=== PATIENT | female | born 1950 | race Caucasian/White ===

== ENCOUNTER → 2018-01-29 08:14 | Outpatient (CLI) | payer MEDICARE, OTHER, SELFPAY ==
--- NOTE | 2018-01-29 | DI.MG.S_ITS ---
UNILATERAL RIGHT DIGITAL DIAGNOSTIC MAMMOGRAM 3D/2D POST LUMPECTOMY SHORT-TERM FOLLOW-UP: 01/29/2018 CLINICAL: Patient returns for a 6 month follow up of the right breast. Comparison is made to exams dated: 08/17/2017 breast MRI, 08/03/2017 ultrasound, 08/03/2017 mammogram, and 07/19/2017 mammogram - [facility]. The tissue of the right breast is heterogeneously dense. This may lower the sensitivity of mammography. There is architectural distortion in the right breast at 7 o'clock anterior depth. This has increased in conspicuity when compared to the prior mammogram. In retrospect, there is an MRI correlate to this finding on the MRI dated 08/17/17 (Series 12, image 40 and Series 17, images 73 and 74). No other significant masses or calcifications are seen in the breast. IMPRESSION: INCOMPLETE: NEEDS ADDITIONAL IMAGING EVALUATION The architectural distortion in the right breast is indeterminate. Given the increased conspicuity, an ultrasound of this area is recommended. If no ultrasound correlate is seen, consider stereotactic biopsy as this is seen by mammogram. This was discussed with the patient by the radiologist (Dr. Hercules) at the time of the exam. This exam was interpreted at Station ID: [id number]. NOTE: For mammograms, a report in lay terms will be sent to the patient. Approximately 15% of breast malignancies will not be visualized mammographically. In the management of a palpable breast mass, a negative mammogram must not discourage biopsy of a clinically suspicious lesion. Electronically Signed By: Ruma Hercules M.D. lk/:01/30/2018 06:50:56 Entry: - 01/30/2018 06:50:56 copy to: Dann Hernandez letter sent: Need Ultrasound ACR BI-RADS Category 0: Incomplete [id number]
== END ==
PROVIDERS: PCP Physician Assistant; Visit Provider Physician Assistant
DX: R92.8 Other abnormal and inconclusive findings on diagnostic imaging of breast (principal)
CPT/HCPCS: 77065; G0279

== ENCOUNTER → 2018-01-30 09:04 | Outpatient (CLI) | payer MEDICARE, OTHER, SELFPAY ==
--- NOTE | 2018-01-30 | DI.US.S_ITS ---
ULTRASOUND OF RIGHT BREAST: 01/30/2018 CLINICAL: Patient returns today to evaluate architectual distortion in the right breast. Comparison is made to exams dated: 01/29/2018 mammogram, 08/17/2017 breast MRI, 08/03/2017 ultrasound, and 08/03/2017 mammogram - [facility]. Real-time and Doppler ultrasound of the right breast were performed. Arce scale images of the real-time examination were reviewed. Targeted ultrasound was performed in the region of the reported architectual distortion along the 7 o'clock position as seen on comparison diagnostic mammogram of 01/29/18. No underlying correlating breast mass or abnormality is identified. Targeted ultrasound along the 9 o'clock position at site of previously reported 5 mm complicated cyst on comparison ultrasound exam demonstrates no ultrasound correlate. No mass or abnormality is identified. IMPRESSION: SUSPICIOUS OF MALIGNANCY - FOLLOW-UP RECOMMENDED No ultrasound correlate for the concerning architectural distortion at 7 o'clock position seen on comparison diagnostic mammogram of 01/29/18. Recommend stereotactic biopsy for further evaluation. These results and recommendations were discussed in person with the patient by [facility] Radiologist Dr. Josee Givens at the time of the exam. No ultrasound correlate for the 5 mm complicated cyst at 9 o'clock position seen on prior ultrasound exam. This cyst may have resolved, but attention on follow-up exams recommended. This exam was interpreted at Station ID: [id number]. Electronically Signed By: Adeel Pastrana M.D. ecl/:01/30/2018 10:06:31 copy to: Dann Hernandez letter sent: Biopsy Required Ultrasound BI-RADS: 4a Suspicious abnormality - low suspicion for malignancy
== END ==
PROVIDERS: PCP Physician Assistant; Visit Provider Physician Assistant
DX: R92.8 Other abnormal and inconclusive findings on diagnostic imaging of breast (principal)
CPT/HCPCS: 76642

== ENCOUNTER → 2018-08-01 12:56 | Outpatient (CLI) | payer MEDICARE, OTHER, SELFPAY ==
--- NOTE | 2018-08-01 | DI.US.S_ITS ---
ULTRASOUND OF RIGHT BREAST: 08/01/2018 CLINICAL: Patient returns today to evaluate an architectural distortion in the right breast. Comparison is made to exams dated: 08/01/2018 mammogram - [facility], 02/09/2018 stereotactic biopsy [facility], 01/30/2018 ultrasound, 01/29/2018 mammogram, 08/17/2017 breast MRI, and 06/29/2015 mammogram - [facility]. Real-time ultrasound of the right breast was performed. Arce scale images of the real-time examination were reviewed. No abnormalities were seen sonographically in the right breast. No sonographic abnormalities to correlate with area of possible architectural distortion in the anterior right breast seen on mammography and MRI. No new mass or disturbed parenchymal echotexture. IMPRESSION: PROBABLY BENIGN There is no abnormality seen in the right breast to correspond with the mammography findings. A follow-up mammogram and an ultrasound in 6 months is recommended to demonstrate continued stability. Will continue with imaging observation until 24 months of stability is documented to confirm that this is a benign process. This exam was interpreted at Station ID: [id number]. Electronically Signed By: Gino curiel/:08/02/2018 08:32:28 letter sent: Followup Recommended Ultrasound BI-RADS: 3 Probably benign
--- NOTE | 2018-08-01 | DI.MG.S_ITS ---
BILATERAL DIGITAL DIAGNOSTIC MAMMOGRAM 3D/2D SHORT-TERM FOLLOW-UP: 08/01/2018 CLINICAL: Patient returns for 6 month follow up of right breast, due for bilateral exam. Post clip. Comparison is made to exams dated: 02/09/2018 stereotactic biopsy - [facility], 01/30/2018 ultrasound, 01/29/2018 mammogram, and 08/17/2017 breast MRI - [facility]. The tissue of both breasts is heterogeneously dense. This may lower the sensitivity of mammography. There are biopsy clips in the left breast. There is possible architectural distortion in the right breast central to the nipple anterior depth. This is not significantly changed and correlates with breast MRI findings. No other significant masses, calcifications, or other findings are seen in either breast. IMPRESSION: INCOMPLETE: NEEDS ADDITIONAL IMAGING EVALUATION The possible architectural distortion in the right breast is indeterminate. An ultrasound is recommended. This exam was interpreted at Station ID: [id number]. NOTE: For mammograms, a report in lay terms will be sent to the patient. Approximately 15% of breast malignancies will not be visualized mammographically. In the management of a palpable breast mass, a negative mammogram must not discourage biopsy of a clinically suspicious lesion. SUMMARY: An ultrasound is scheduled to immediately follow this examination. Electronically Signed By: Gino Aldana M.D. aty/:08/01/2018 14:29:47 ACR BI-RADS Category 0: Incomplete 3340F
== END ==
PROVIDERS: PCP Physician Assistant; Visit Provider Physician Assistant
DX: R92.8 Other abnormal and inconclusive findings on diagnostic imaging of breast (principal)
CPT/HCPCS: 76642; 77066; G0279

== ENCOUNTER 2018-11-09 14:35 | Emergency (ER) | payer MEDICARE, OTHER, SELFPAY ==
[2018-11-09] VITALS (13 sets, daily range): BP systolic 111–144; BP diastolic 54–86; PULSE 55–67; RESP 10–36; TEMP 37.1; O2SAT 92–100; BMI 34.9
--- NOTE | 2018-11-09 14:41 | DI.RAD.S_ITS ---
PROCEDURE: XR SHOULDER RT MIN 2V INDICATIONS: fall onto right shoulder TECHNIQUE: 2 views of the shoulder were acquired. COMPARISON: None. FINDINGS: Bones: Anterior shoulder dislocation. No fracture identified. No suspicious bony lesions. Visualized ribs appear intact. Soft tissues: No suspicious soft tissue calcifications. IMPRESSION: Anterior shoulder dislocation Dictated by: Rajendra Beard M.D. on 11/09/2018 at 15:00 Approved by: Rajendra Beard M.D. on 11/09/2018 at 15:01
[2018-11-09] MEDS: HYDROMORPHONE 1 MG INJ 0.5 MG IV ×2 (15:44→16:36)
[2018-11-09] MEDS: ONDANSETRON 4 MG/2 ML INJ IV ×2 (15:45→17:08)
[2018-11-09] MEDS: ETOMIDATE 2 MG/ML VIAL 8 MG IV (16:58)
--- NOTE | 2018-11-09 17:10 | DI.RAD.S_ITS ---
PROCEDURE: XR SHOULDER RT MIN 2V INDICATIONS: reduction TECHNIQUE: 2 views of the shoulder were acquired. COMPARISON: [facility], CR, XR SHOULDER RT MIN 2V, 11/09/2018, 14:47. FINDINGS: Bones: There is interval reduction of earlier noted anterior-inferior dislocation of glenohumeral joint. No dislocation is seen on the current study. Right shoulder alignment is anatomic. 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 Hill-Sachs deformity in posterior lateral humeral head is seen. No suspicious bony lesions. Visualized ribs appear intact. Soft tissues: No suspicious soft tissue calcifications. IMPRESSION: Interval reduction of earlier noted glenohumeral joint dislocation with anatomic right shoulder alignment. Hill-Sachs deformity involving the humeral head. No dislocation. Dictated by: Delfin Anderson M.D. on 11/09/2018 at 17:32 Approved by: Delfin Anderson M.D. on 11/09/2018 at 17:33
--- NOTE | 2018-11-09 17:52 | ED.UPPEXIN ---
HPI - Extremity Injury (Upper) General Chief Complaint: Extremity Injury, Upper Stated Complaint: fell today hurt right shoulder Time Seen by Provider: 11/09/18 16:01 Source: patient Mode of arrival: ambulatory Limitations: no limitations History of Present Illness HPI narrative: The patient is a 68-year-old female who presents with right shoulder pain. She tripped and fell she is not obvious right shoulder deformity. No numbness or tingling no other injuries. MD complaint: injury to: right and shoulder Related Data Home Medications Medication Instructions Recorded Confirmed Calcium 500 + D 1 tab PO DAILY #0 06/22/11 11/09/18 Spiriva with HandiHaler 18 mcg RT DAILY #0 06/22/11 11/09/18 albuterol sulfate 1 puff INHALATION PRN PRN #0 06/22/11 11/09/18 Acid Reflux Med 1 tab PO QPM 11/09/18 11/09/18 Dulera 1 puff INHALATION BID 11/09/18 11/09/18 Eyrghr-Nipay-CVH (with antiox) 1 tab PO QPM 11/09/18 11/09/18 atorvastatin 1 tab PO QPM 11/09/18 11/09/18 magnesium 450 mg PO QPM 11/09/18 11/09/18 vitamin E 1 cap PO QPM 11/09/18 11/09/18 Previous Rx's Medication Instructions Recorded ondansetron 4 mg PO Q6-8H PRN #10 tab 11/09/18 Allergies Allergy/AdvReac Type Severity Reaction Status Date / Time budesonide [From Symbicort] Allergy Verified 11/09/18 14:38 formoterol [From Symbicort] Allergy Verified 11/09/18 14:38 Review of Systems Review of Systems GENERAL: Denies chills,fever HEENT: Denies throat pain RESPIRATORY: Denies dyspnea, cough, wheezing CARDIOVASCULAR: Denies chest pain, palpitations GASTROINTESTINAL: Denies nausea, vomiting MUSCULOSKELETAL: See HPI SKIN: No rash, no laceration, no pruritus NEUROLOGIC: Denies weakness, dizziness, headache, numbness 8 point review of systems is negative except for those stated above and HPI [facility] Medical History COPD (chronic obstructive pulmonary disease) (Acute) Social History Smoking Status: Unknown if ever smoked Social History Smoking Status: Unknown if ever smoked Exam Initial Vital Signs Initial Vital Signs: Vital Signs Temperature 98.7 F 11/09/18 14:38 Pulse Rate 67 11/09/18 14:38 Respiratory Rate 14 11/09/18 14:38 Blood Pressure 129/81 11/09/18 14:38 Pulse Oximetry 96 11/09/18 14:38 GENERAL: Well-appearing, well-nourished and in no acute distress. CARDIOVASCULAR: peripheral pulses in tact, cap refill <2 sec RESPIRATORY: No respiratory distress, speaks in full sentences without difficulty EXTREMITIES: Normal range of motion, no clubbing or edema. Neurovascularly intact Right shoulder deformity NEUROLOGICAL: Cranial nerves II through XII grossly intact. Normal gait and speech. SKIN: Warm, dry, no petechiae, no rashes or lesions. Procedures Orthopedic Joint Reduction Joint #1: Time Out Performed: Yes Side: right Joint Reduction Location: shoulder Shoulder Technique Used (if applicable): traction/counter-traction Post-reduction neuro exam: intact Post-reduction vascular: intact Post Reduction X-Ray Obtained: Yes Post Reduction X-Ray Results: reduced Splint Applied: Yes Patient Tolerated Procedure: Well Orthopedic Splinting/Casting Injury #1: Side: right Upper Extremity Injury Location: shoulder Upper Extremity Immobilizer: sling/shoulder immobilizer Post splinting neuro exam: intact Post splinting vascular exam: intact Placed by: Nursing Procedural Sedation Patient Age: Patient is 5yrs or older Consent signed: Yes Time out performed: Yes Indication: fracture/dislocation reduction ASA Class: I Preparation: laboratory monitor applied and IV secured IV Etomidate dose (mg): 8 Intraservice time/total sedation time (min): 15 ED Sedation Level: Moderate (Concious) Course Orders Ordered: Discontinued Medications Etomidate (Amidate) 8 mg IV NOW ONE Stop: 11/09/18 16:03 Last Admin: 11/09/18 16:58 Dose: 8 mg Hydromorphone HCl (Dilaudid) 0.5 mg IV NOW ONE Stop: 11/09/18 15:40 Last Admin: 11/09/18 15:44 Dose: 0.5 mg Hydromorphone HCl (Dilaudid) 0.5 mg IV NOW ONE Stop: 11/09/18 16:36 Last Admin: 11/09/18 16:36 Dose: 0.5 mg Ondansetron HCl (Zofran) 4 mg IV NOW ONE Stop: 11/09/18 15:40 Last Admin: 11/09/18 15:45 Dose: 4 mg Ondansetron HCl (Zofran) 4 mg IV NOW ONE Stop: 11/09/18 17:07 Last Admin: 11/09/18 17:08 Dose: 4 mg Vital Signs - 8 hr 11/09/18 14:38 11/09/18 16:35 11/09/18 17:00 Temperature 98.7 F Pulse Rate 67 60 66 Respiratory Rate 14 10 L 19 Blood Pressure 129/81 Blood Pressure [Left Arm] 144/76 H 135/63 Pulse Oximetry 96 92 97 11/09/18 17:05 11/09/18 17:10 11/09/18 17:15 Temperature Pulse Rate 66 59 L 59 L Respiratory Rate 15 12 13 Blood Pressure Blood Pressure [Left Arm] 142/79 H 140/71 127/65 Pulse Oximetry 93 98 96 11/09/18 17:20 11/09/18 17:25 11/09/18 17:30 Temperature Pulse Rate 61 58 L 58 L Respiratory Rate 13 13 13 Blood Pressure Blood Pressure [Left Arm] 114/59 L 119/86 114/57 L Pulse Oximetry 97 97 97 11/09/18 17:35 Temperature Pulse Rate 58 L Respiratory Rate 13 Blood Pressure Blood Pressure [Left Arm] 111/68 Pulse Oximetry 95 MDM - Extremity Injury (Upper) Lab Data Point of Care Testing Test Results Not applicable Imaging Data shoulder XR: Radiologist's impression: PROCEDURE: XR SHOULDER RT MIN 2V INDICATIONS: fall onto right shoulder TECHNIQUE: 2 views of the shoulder were acquired. COMPARISON: None. FINDINGS: Bones: Anterior shoulder dislocation. No fracture identified. No suspicious bony lesions. Visualized ribs appear intact. Soft tissues: No suspicious soft tissue calcifications. IMPRESSION: Anterior shoulder dislocation Dictated by: Rajendra Beard M.D. on 11/09/2018 at 15:00 shoulder XR 2: Radiologist's impression: PROCEDURE: XR SHOULDER RT MIN 2V INDICATIONS: reduction TECHNIQUE: 2 views of the shoulder were acquired. COMPARISON: [facility], XR SHOULDER RT MIN 2V, 11/09/2018, 14:47. FINDINGS: Bones: There is interval reduction of earlier noted anterior-inferior dislocation of glenohumeral joint. No dislocation is seen on the current study. Right shoulder alignment is anatomic. 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 Hill-Sachs deformity in posterior lateral humeral head is seen. No suspicious bony lesions. Visualized ribs appear intact. Soft tissues: No suspicious soft tissue calcifications. IMPRESSION: Interval reduction of earlier noted glenohumeral joint dislocation with anatomic right shoulder alignment. Hill-Sachs deformity involving the humeral head. No dislocation. Dictated by: Delfin Anderson M.D. on 11/09/2018 at 17:32 Discharge Plan Departure Patient Disposition: Home Clinical Impression: Hill Sachs deformity, right Dislocated shoulder Qualifiers: Encounter type: initial encounter Laterality: right Qualified Code(s): S43.004A - Unspecified dislocation of right shoulder joint, initial encounter Discharge Date/Time: 11/09/18 18:49 Interventions: ED Discharge Assessment Last Done: 11/09/18 18:48 Instructions: DI for Shoulder Dislocation, DI for Shoulder Fracture Activity Restrictions/Additional Instructions: *You have been diagnosed with right shoulder dislocation *What to do: keep arm in sling *Continue to take medications as directed Zofran 4 mg sublingual every 6 8 hours if needed for nausea vomiting *Follow up with your primary care provider in 2-3 days, follow up with orthopedic in 1-2 weeks *Return to ER if you should have increasing pain number tingling or weakness or any new, worsening or concerning symptoms Prescriptions: New ondansetron 4 mg tablet,disintegrating 4 mg PO Q6-8H PRN (Reason: nausea and vomiting) Qty: 10 RF: 0 No Action albuterol sulfate 90 mcg/actuation Hfa Aerosol Inhaler 1 puff INHALATION PRN PRN (Reason: Shortness Of Breath) Qty: 0 RF: 0 Spiriva with HandiHaler 18 MCG capsule, w/inhalation device 18 mcg RT DAILY Qty: 0 RF: 0 Calcium 500 + D 1 tab PO DAILY Qty: 0 RF: 0 Acid Reflux Med 1 tab PO QPM RF: 0 Dulera 1 puff inhalation BID RF: 0 Xmwxfp-Ltmya-MHG (with antiox) 1 tab PO QPM RF: 0 atorvastatin 1 tab PO QPM RF: 0 magnesium 450 mg 450 mg PO QPM RF: 0 vitamin E 1 cap PO QPM RF: 0 Referrals: [facility] [Provider Group]
== END 2018-11-09 18:49 | disposition home or self-care (01) ==
PROVIDERS: Emergency Provider Emergency Medicine
DX: S43.004A Unspecified dislocation of right shoulder joint, initial encounter (principal); M21.821 Other specified acquired deformities of right upper arm; W01.0XXA Fall on same level from slipping, tripping and stumbling without subsequent striking against object, initial encounter
CPT/HCPCS: 23650; 73030; 94770; 96374; 96375; 96376; 99284; 99285; 99291; J1170; J2405

== ENCOUNTER → 2019-01-23 14:08 | Outpatient (CLI) | payer MEDICARE, OTHER, SELFPAY ==
--- NOTE | 2019-01-23 | DI.MG.S_ITS ---
UNILATERAL RIGHT DIGITAL DIAGNOSTIC MAMMOGRAM 3D/2D: 01/23/2019 CLINICAL: Patient returns for a 6 month follow up of the right breast. Comparison is made to exams dated: 08/01/2018 [facility], 02/09/2018 stereotactic biopsy [facility], and 01/29/2018 [facility]. The tissue of right breast is heterogeneously dense. This may lower the sensitivity of mammography. There is a stable small area of possible architectural distortion in the right breast at 7 o'clock anterior depth. No new area of asymmetry. A biopsy clip is present at the 11:00 position at the same depth. No other significant masses or calcifications are seen in the breast. IMPRESSION: INCOMPLETE: NEEDS ADDITIONAL IMAGING EVALUATION The possible architectural distortion in the right breast is stable. An ultrasound is recommended for confirmation. This was performed immediately following this exam. This exam was interpreted at Station ID: [id number]. NOTE: For mammograms, a report in lay terms will be sent to the patient. Approximately 15% of breast malignancies will not be visualized mammographically. In the management of a palpable breast mass, a negative mammogram must not discourage biopsy of a clinically suspicious lesion. Electronically Signed By: Jamila bey/:01/23/2019 17:00:19 ACR BI-RADS Category 0: Incomplete 3340F
--- NOTE | 2019-01-23 | DI.US.S_ITS ---
LIMITED ULTRASOUND OF RIGHT BREAST: 01/23/2019 CLINICAL: Patient returns for a 6 month follow up of the right breast. Comparison is made to exams dated: 01/23/2019 mammogram, 08/01/2018 ultrasound, 08/01/2018 mammogram, 01/30/2018 ultrasound, 01/29/2018 mammogram, and 08/17/2017 breast [facility]. Real-time ultrasound of the right breast lower outer quadrant was performed. Arce scale images of the real-time examination were reviewed. The breast tissue of the right breast is heterogeneous and fibrocystic. Overall appearance is stable without new shadowing or solid mass. No significant abnormalities were seen sonographically in the right breast. IMPRESSION: PROBABLY BENIGN Heterogeneous, stable tissue in the right breast. No sonographic correlate to area of possible architectural distortion on mammogram. Continue with follow-up right mammogram and an ultrasound in 6 months is recommended to demonstrate at least 2 years of stability. Findings and recommendations were conveyed to the patient at time of exam. This exam was interpreted at Station ID: [id number]. Electronically Signed By: Jamila bey/:01/23/2019 17:05:38 letter sent: Followup Recommended Ultrasound BI-RADS: 3 Probably benign
== END ==
PROVIDERS: PCP Student in an Organized Health Care Education/Training Program; Visit Provider Student in an Organized Health Care Education/Training Program
DX: R92.8 Other abnormal and inconclusive findings on diagnostic imaging of breast (principal); N60.11 Diffuse cystic mastopathy of right breast
CPT/HCPCS: 76642; 77065; G0279

== ENCOUNTER → 2019-08-05 07:53 | Outpatient (CLI) | payer MEDICARE, OTHER, SELFPAY ==
--- NOTE | 2019-08-05 | DI.MG.S_ITS ---
BILATERAL DIGITAL DIAGNOSTIC MAMMOGRAM 3D/2D: 08/05/2019 CLINICAL: Short term follow up of the right breast, due for bilateral imaging. Comparison is made to exams dated: 01/23/2019 mammogram, 08/01/2018 ultrasound, and 08/01/2018 mammogram - [facility]. The tissue of both breasts is heterogeneously dense. This may lower the sensitivity of mammography. There is a stable architectural distortion in the right breast at 8 o'clock middle depth. There also is a focal asymmetry in the right breast at 12 o'clock posterior depth. No other significant masses, calcifications, or other findings are seen in either breast. IMPRESSION: INCOMPLETE: NEEDS ADDITIONAL IMAGING EVALUATION The architectural distortion in the right breast at 8 o'clock middle depth is indeterminate. The focal asymmetry in the right breast at 12 o'clock posterior depth is indeterminate. A targeted ultrasound of the right breast is recommended and will be performed immediately following this exam. This exam was interpreted at Station ID: [id number]. NOTE: For mammograms, a report in lay terms will be sent to the patient. Approximately 15% of breast malignancies will not be visualized mammographically. In the management of a palpable breast mass, a negative mammogram must not discourage biopsy of a clinically suspicious lesion. Electronically Signed By: Ruma Hercules M.D. lk/:08/05/2019 15:47:03 ACR BI-RADS Category 0: Incomplete 3340F
--- NOTE | 2019-08-05 | DI.US.S_ITS ---
ULTRASOUND OF RIGHT BREAST: 08/05/2019 CLINICAL: 6 month follow-up Additional evaluation requested from prior study. Comparison is made to exams dated: 08/05/2019 mammogram, 01/23/2019 ultrasound, 01/23/2019 mammogram, 08/01/2018 ultrasound, and 08/01/2018 mammogram - [facility]. Color flow and real-time ultrasound of the right breast were performed on the areas of interest. Arce scale images of the real-time examination were reviewed. There is a complicated cyst in the right breast at 8 o'clock middle depth. This correlates as an incidental finding. There is no sonographic abnormality seen in the right breast to correspond with the architectural distortion at 8 o'clock. There is an area of fibroglandular tissue in the right breast at 12 o'clock posterior depth. This likely correlates with mammography findings. IMPRESSION: PROBABLY BENIGN The complicated cyst in the right breast at 8 o'clock middle depth is probably benign. A follow-up ultrasound in 6 months is recommended. The small region of fibroglandular tissue in the right breast at 12 o'clock posterior depth likely corresponds with the focal asymmetry on the comparision mammogram. Of note, this is stable from the mammogram dated 08/01/18, but is not well characterized on prior mammograms, possibly due to different imaging techniques. Follow-up mammogram and ultrasound in 6 months is recommended to ensure stability. There is no sonographic abnormality seen in the right breast to correspond with the architectural distortion at 8 o'clock. A follow-up right mammogram and an ultrasound in 6 months is recommended to demonstrate stability. Of note, this architectural distortion has been stable for 18 months from the 01/29/18 exam. Follow-up mammogram and possible ultrasound in 6 months is recommended to ensure stability. This exam was interpreted at Station ID: [id number]. Electronically Signed By: Ruma berrios/:08/07/2019 13:48:12 letter sent: Followup Recommended Ultrasound BI-RADS: 3 Probably benign
== END ==
PROVIDERS: PCP Student in an Organized Health Care Education/Training Program; Referring Provider Student in an Organized Health Care Education/Training Program; Visit Provider Student in an Organized Health Care Education/Training Program
DX: R92.8 Other abnormal and inconclusive findings on diagnostic imaging of breast (principal); N64.89 Other specified disorders of breast; N60.01 Solitary cyst of right breast
CPT/HCPCS: 76642; 77066; G0279

== ENCOUNTER → 2020-02-06 13:16 | Outpatient (CLI) | payer MEDICARE, OTHER, SELFPAY ==
--- NOTE | 2020-02-06 | DI.MG.S_ITS ---
UNILATERAL RIGHT DIGITAL DIAGNOSTIC MAMMOGRAM 3D/2D SHORT-TERM FOLLOW-UP: 02/06/2020 CLINICAL: Short term follow up of the right breast. Comparison is made to exams dated: 08/05/2019 mammogram, 01/23/2019 mammogram, 08/01/2018 mammogram, and 01/29/2018 mammogram - [facility]. The tissue of right breast is heterogeneously dense. This may lower the sensitivity of mammography. There is a stable architectural distortion in the right breast at 8 o'clock middle depth. There also is a focal asymmetry in the right breast at 12 o'clock posterior depth. No other significant masses or calcifications are seen in the breast. IMPRESSION: INCOMPLETE: NEEDS ADDITIONAL IMAGING EVALUATION A targeted ultrasound of the right breast is recommended and will be performed immediately following this exam. Two stable areas of architectural distortion in the right breast. A focal asymmetry in the right breast at 12 o'clock posterior depth is also stable. This exam was interpreted at Station ID: [id number]. NOTE: For mammograms, a report in lay terms will be sent to the patient. Approximately 15% of breast malignancies will not be visualized mammographically. In the management of a palpable breast mass, a negative mammogram must not discourage biopsy of a clinically suspicious lesion. Electronically Signed By: Sonny Zuleta M.D. jr/:02/06/2020 13:45:47 ACR BI-RADS Category 0: Incomplete [id number]
--- NOTE | 2020-02-06 | DI.US.S_ITS ---
LIMITED ULTRASOUND OF RIGHT BREAST: 02/06/2020 CLINICAL: 6 month follow-up of cysts. Comparison is made to exams dated: 02/06/2020 mammogram, 08/05/2019 ultrasound, 08/05/2019 mammogram, 01/23/2019 ultrasound, 01/23/2019 mammogram, and 08/01/2018 ultrasound [facility]. Color flow and real-time ultrasound of the right breast were performed. Arce scale images of the real-time examination were reviewed. There is a complicated cyst in the right breast at 8 o'clock middle depth. This correlates as an incidental finding. There also is a stable irregular area of fibroglandular tissue in the right breast at 12 o'clock posterior depth. This correlates with mammography findings. IMPRESSION: BENIGN There is no sonographic evidence of malignancy. The numerous tiny minimally complicated cysts in the right breast are not significantly changed over the interval since 2018. These are statistically benign and have no suspicious features. Return to annual screening mammogram is recommended. This exam was interpreted at Station ID: [id number]. Electronically Signed By: Sonny Zuleta M.D. jr/:02/06/2020 15:38:51 letter sent: Normal Exam Ultrasound BI-RADS: 2 Benign
== END ==
PROVIDERS: PCP Student in an Organized Health Care Education/Training Program; Referring Provider Student in an Organized Health Care Education/Training Program; Visit Provider Student in an Organized Health Care Education/Training Program
DX: R92.8 Other abnormal and inconclusive findings on diagnostic imaging of breast (principal); N60.01 Solitary cyst of right breast; N64.89 Other specified disorders of breast
CPT/HCPCS: 76642; 77065; G0279

== ENCOUNTER → 2020-06-18 13:16 | Outpatient (CLI) | payer MEDICARE, OTHER, SELFPAY ==
[2020-06-18] MEDS: COVID-19 VACC #1, MRNA(MOD) 100 MCG/0.5 ML VIAL IM (13:21)
== END ==
PROVIDERS: PCP Student in an Organized Health Care Education/Training Program; Visit Provider Internal Medicine
DX: Z23 Encounter for immunization (principal)
CPT/HCPCS: 0011A; 91301

== ENCOUNTER → 2020-07-16 13:06 | Outpatient (CLI) | payer MEDICARE, OTHER, SELFPAY ==
[2020-07-16] MEDS: COVID-19 VACC #2, MRNA(MOD) 100 MCG/0.5 ML VIAL IM (13:10)
== END ==
PROVIDERS: PCP Student in an Organized Health Care Education/Training Program; Visit Provider Internal Medicine
DX: Z23 Encounter for immunization (principal)
CPT/HCPCS: 0012A; 91301

== ENCOUNTER → 2021-02-08 08:13 | Outpatient (CLI) | payer MEDICARE, OTHER, SELFPAY ==
--- NOTE | 2021-02-08 | DI.MG.S_ITS ---
BILATERAL DIGITAL SCREENING MAMMOGRAM 3D/2D WITH CAD: 02/08/2021 CLINICAL: Routine screening. History of LCIS. Comparison is made to exams dated: 02/06/2020 mammogram, 08/05/2019 mammogram, 01/23/2019 mammogram, 08/01/2018 mammogram, 01/29/2018 mammogram, and 08/03/2017 mammogram - [facility]. The tissue of both breasts is heterogeneously dense. This may lower the sensitivity of mammography. Current study was also evaluated with a Computer Aided Detection (CAD) system. There are benign calcifications in both breasts. There also are benign post operative findings in the left breast. No significant masses, calcifications, or other findings are seen in either breast. There has been no significant interval change. IMPRESSION: BENIGN There is no mammographic evidence of malignancy. A 1 year screening mammogram is recommended. This exam was interpreted at Station ID: [id number]. NOTE: For mammograms, a report in lay terms will be sent to the patient. Approximately 15% of breast malignancies will not be visualized mammographically. In the management of a palpable breast mass, a negative mammogram must not discourage biopsy of a clinically suspicious lesion. Electronically Signed By: Bijan Kimball acr/ethan:02/08/2021 10:37:17 letter sent: Normal Exam ACR BI-RADS Category 2: Benign Finding(s) 3342F
== END ==
PROVIDERS: PCP Student in an Organized Health Care Education/Training Program; Referring Provider Student in an Organized Health Care Education/Training Program; Visit Provider Student in an Organized Health Care Education/Training Program
DX: Z12.31 Encounter for screening mammogram for malignant neoplasm of breast (principal); Z87.2 Personal history of diseases of the skin and subcutaneous tissue
CPT/HCPCS: 77063; 77067

== ENCOUNTER → 2022-02-09 12:28 | Outpatient (CLI) | payer MEDICARE, OTHER, SELFPAY ==
--- NOTE | 2022-02-09 | DI.MG.S_ITS ---
BILATERAL DIGITAL SCREENING MAMMOGRAM 3D/2D WITH CAD: 02/09/2022 CLINICAL: Routine screening. History of LCIS. Comparison is made to exams dated: 02/08/2021 mammogram, 08/05/2019 mammogram, 08/01/2018 mammogram, 01/23/2019 mammogram, and 07/19/2017 mammogram - [facility]. Both breasts are heterogeneously dense, which may obscure small masses (category c / 51-75% glandular tissue). Current study was also evaluated with a Computer Aided Detection (CAD) system. There are benign calcifications in both breasts. There also is a biopsy clip in the right breast. Additionally, there are benign post operative findings in the left breast. No significant masses, calcifications, or other findings are seen in either breast. There has been no significant interval change. IMPRESSION: BENIGN There is no mammographic evidence of malignancy. A 1 year screening mammogram is recommended. This exam was interpreted at Station ID: [id number]. NOTE: For mammograms, a report in lay terms will be sent to the patient. Approximately 15% of breast malignancies will not be visualized mammographically. In the management of a palpable breast mass, a negative mammogram must not discourage biopsy of a clinically suspicious lesion. Electronically Signed By: Christos persaud/ethan:02/09/2022 15:02:01 letter sent: Normal Exam ACR BI-RADS Category 2: Benign Finding(s) 3342F
== END ==
PROVIDERS: PCP Student in an Organized Health Care Education/Training Program; Referring Provider Student in an Organized Health Care Education/Training Program; Visit Provider Student in an Organized Health Care Education/Training Program
DX: Z12.31 Encounter for screening mammogram for malignant neoplasm of breast (principal); Z86.000 Personal history of in-situ neoplasm of breast
CPT/HCPCS: 77063; 77067

== ENCOUNTER → 2023-02-14 14:51 | Outpatient (CLI) | payer MEDICARE, SELFPAY ==
--- NOTE | 2023-02-14 | DI.MG.S_ITS ---
BILATERAL DIGITAL SCREENING MAMMOGRAM 3D/2D WITH CAD: 02/14/2023 CLINICAL: Routine screening. Personal history of LCIS. Comparison is made to exams dated: 02/09/2022 mammogram, 02/08/2021 mammogram, 08/05/2019 mammogram, 02/06/2020 mammogram, 01/23/2019 mammogram, and 08/01/2018 mammogram - [facility]. Both breasts are heterogeneously dense, which may obscure small masses (category c / 51-75% glandular tissue). Current study was also evaluated with a Computer Aided Detection (CAD) system. There are benign calcifications in both breasts. There also is a biopsy clip in the right breast. Additionally, there are benign post operative findings in the left breast. No significant masses, calcifications, or other findings are seen in either breast. There has been no significant interval change. IMPRESSION: BENIGN There is no mammographic evidence of malignancy. A 1 year screening mammogram is recommended. This exam was interpreted at Station ID: [id number]. NOTE: For mammograms, a report in lay terms will be sent to the patient. Approximately 15% of breast malignancies will not be visualized mammographically. In the management of a palpable breast mass, a negative mammogram must not discourage biopsy of a clinically suspicious lesion. Electronically Signed By: Ramiro meza/ethan:02/15/2023 09:48:29 letter sent: Normal Exam ACR BI-RADS Category 2: Benign Finding(s) 3342F
== END ==
PROVIDERS: PCP Student in an Organized Health Care Education/Training Program; Referring Provider Student in an Organized Health Care Education/Training Program; Visit Provider Student in an Organized Health Care Education/Training Program
DX: Z12.31 Encounter for screening mammogram for malignant neoplasm of breast (principal); Z86.000 Personal history of in-situ neoplasm of breast
CPT/HCPCS: 77063; 77067

== ENCOUNTER → 2024-02-16 11:26 | Outpatient (CLI) | payer MEDICARE, SELFPAY ==
--- NOTE | 2024-02-16 11:29 | DI.MG.S_ITS ---
BILATERAL DIGITAL SCREENING MAMMOGRAM 3D/2D WITH CAD: 02/16/2024 CLINICAL: Routine screening. Personal history of left breast cancer. Comparison is made to exams dated: 02/14/2023 mammogram, 02/09/2022 mammogram, and 02/08/2021 mammogram - [facility]. The breasts are heterogeneously dense, which may obscure small masses (category c / 51-75% glandular tissue). Current study was also evaluated with a Computer Aided Detection (CAD) system. There are benign calcifications in both breasts. There also is a biopsy clip in the right breast. Additionally, there are benign post operative findings in the left breast. No significant masses, calcifications, or other findings are seen in either breast. There has been no significant interval change. IMPRESSION: BENIGN There is no mammographic evidence of malignancy. A 1 year screening mammogram is recommended. This exam was interpreted at Station ID: [id number]. NOTE: For mammograms, a report in lay terms will be sent to the patient. Approximately 15% of breast malignancies will not be visualized mammographically. In the management of a palpable breast mass, a negative mammogram must not discourage biopsy of a clinically suspicious lesion. Electronically Signed By: Ramiro meza/ethan:02/16/2024 16:27:41 letter sent: Normal Exam ACR BI-RADS Category 2: Benign
== END ==
PROVIDERS: PCP Family Medicine; Referring Provider Family Medicine; Visit Provider Family Medicine
DX: Z12.31 Encounter for screening mammogram for malignant neoplasm of breast (principal); Z85.3 Personal history of malignant neoplasm of breast; R92.333 Mammographic heterogeneous density, bilateral breasts
CPT/HCPCS: 77063; 77067

== ENCOUNTER → 2025-02-20 07:33 | Outpatient (CLI) | payer MEDICARE, SELFPAY ==
--- NOTE | 2025-02-20 07:35 | DI.MG.S_ITS ---
MM screening mammo BI: 02/20/2025. BI-RADS: 0 CLINICAL: 75-year old female for bilateral screening mammogram. Tyrer-Cuzick lifetime risk of 3.4%. No personal or first-degree family history of breast cancer. The patient had prior bilateral breast biopsies. PRIOR EXAMS 02/16/2024, 02/14/2023, 02/09/2022, 02/08/2021, MAMMOGRAPHY TECHNIQUE: 2D and 3D (tomosynthesis) digital mammographic views obtained, with additional images as needed for full coverage. Current study was also evaluated with a Computer Aided Detection (CAD) system. DENSITY C. The breasts are heterogeneously dense, which may obscure small masses. MAMMOGRAPHY FINDINGS Right: Upper Outer Quadrant, Anterior depth: Architectural distortion needing additional imaging evaluation. Right: Biopsy marker present on the right. Left: Benign-appearing post-surgical changes noted on the left. There are no suspicious masses, calcifications, or other findings in the breast. IMPRESSION: Right (Arch Distortion): Upper Outer Quadrant, Anterior depth * Incomplete - architectural distortion needing additional imaging evaluation. Left * No evidence of malignancy with benign findings. RECOMMENDATIONS Right: Upper Outer Quadrant, Anterior depth * Further evaluation with diagnostic mammography and diagnostic ultrasound. Ultrasound to be performed only if needed. OVERALL ASSESSMENT CATEGORY BI-RADS-0: Incomplete - Need Additional Imaging Evaluation. ELECTRONICALLY SIGNED: Peg Thompson M.D. on 02/20/2025 at 10:28:10 PM PT Interpreting Station ID: [id number]
== END ==
PROVIDERS: PCP Family Medicine; Referring Provider Family Medicine; Visit Provider Physician Assistant
DX: Z12.31 Encounter for screening mammogram for malignant neoplasm of breast (principal); R92.333 Mammographic heterogeneous density, bilateral breasts
CPT/HCPCS: 77063; 77067

== ENCOUNTER → 2025-03-04 08:37 | Outpatient (CLI) | payer MEDICARE, OTHER, SELFPAY ==
--- NOTE | 2025-03-04 08:39 | DI.MG.S_ITS ---
US breast RT limited, MM diagnostic mammo unilat RT: 03/04/2025 BI-RADS: 4 CLINICAL: 75-year old female for right diagnostic mammogram and right diagnostic breast ultrasound that is a recall from screening on 02/20/2025. Tyrer-Cuzick lifetime risk of 3.4%. No personal or first-degree family history of breast cancer. The patient had prior bilateral breast biopsies. PRIOR EXAMS 02/20/2025, 02/16/2024, 02/14/2023, 02/09/2022, 02/08/2021. MAMMOGRAPHY TECHNIQUE: 2D and 3D (tomosynthesis) digital mammographic views obtained, with additional images as needed for full coverage. Current study was also evaluated with a Computer Aided Detection (CAD) system. ULTRASOUND TECHNIQUE: Right targeted breast ultrasound of the area of clinical interest and the axilla was performed with image documentation. Real-time ortega scale and color doppler imaging of the area of clinical interest was performed with image documentation. DENSITY Right: C. The breast is heterogeneously dense, which may obscure small masses. MAMMOGRAPHY FINDINGS Right (finding-2): Upper Outer at 11:00, Far Anterior depth, measuring 0.5cm: Correlating with findings on screening mammogram there is an area of architectural distortion present. Right (finding-1): Central, Anterior depth, measuring 0.5cm: There is an area of architectural distortion present. This is located approximately 2 cm medial and inferior to the architectural distortion at 11 o'clock. ULTRASOUND FINDINGS Right: Upper Outer at 11:00, 2 cm from nipple, measuring 0.5 x 0.5 x 0.7 cm: There is a simple anechoic cyst. This is an incidental finding. Right (finding-1): Outer at 9:00, Retroareolar, measuring 0.3 x 0.3 x 0.4 cm: There is an area of non-specific acoustic shadowing. This may correlate to the mammographic finding. Right (finding-2): Upper Outer at 11:00, 2 cm from nipple: There is no sonographic correlate for the mammographic finding. Right: Axilla: No abnormal lymph nodes are seen in the axilla. IMPRESSION: Right (Arch Distortion): Upper Outer at 11:00, Far Anterior depth, measuring 0.5cm * Suspicious findings with likelihood of malignancy. Right (Arch Distortion): Central, Anterior depth, measuring 0.5cm * Suspicious findings with likelihood of malignancy. RECOMMENDATIONS Right: Upper Outer at 11:00, Far Anterior depth * Stereotactic-guided biopsy for further evaluation. Right: Central, Anterior depth * Stereotactic-guided biopsy for further evaluation (Although a possible sonographic correlate is identified, this finding is better demonstrated on mammogram). COMMENTS: Findings and recommendations were conveyed to the patient during today's evaluation over the phone by Dr. Thompson. OVERALL ASSESSMENT CATEGORY BI-RADS-4: Suspicious. ELECTRONICALLY SIGNED: Peg Thompson M.D. on 03/04/2025 at 12:41:59 PM PT Interpreting Station ID: [id number]
== END ==
PROVIDERS: PCP Physician Assistant; Referring Provider Physician Assistant; Visit Provider Physician Assistant
DX: R92.8 Other abnormal and inconclusive findings on diagnostic imaging of breast (principal); R92.331 Mammographic heterogeneous density, right breast; N60.01 Solitary cyst of right breast
CPT/HCPCS: 76642; 77065; G0279